=== PATIENT | male | born 1955 | race Caucasian/White ===

== ENCOUNTER 2020-03-10 13:30 | Emergency (ER) | payer OTHER ==
[~2020-03-10] VITALS: Ht 172.7 cm; Wt 113.6 kg
[2020-03-10 13:46] VITALS: TEMP 98.3
[2020-03-10] MEDS ORDERED: GLUCOPHAGE500 MG/TAB PO (14:54)
[2020-03-10] MEDS ORDERED: ZOCOR 10MG10 MG PO (14:54)
[2020-03-10] MEDS ORDERED: INDERAL LA 80MG80 MG PO (14:55)
[2020-03-10 15:09] LABS: COLLECTION METHOD CLEAN CATCH
[2020-03-10 15:16] LABS: HEMATOCRIT 39.6 % (42.0-52.0); MEAN CELL VOLUME 92 fl (80.0-100.0); MEAN CORPUSCULAR HEMOGLOBIN 30 pg (27.0-31.0); MEAN CORPUSCULAR HGB CONC 33 g/dl (33.0-37.0); MEAN PLATELET VOLUME 10.8 fl (7.4-10.4); PLATELET COUNT 97 K/mm3 (130-400); RED BLOOD COUNT 4.33 M/mm3 (4.20-5.60); REDCELL DISTRIBUTION WIDTH-CV 13.1 % (11.5-14.5)
[2020-03-10 15:17] LABS: PH 6 (5-8); SQUAMOUS EPITHELIAL None Seen /hpf; URINE APPEARANCE Clear; URINE BACTERIA None Seen /hpf; URINE BILIRUBIN Negative (NEGATIVE); URINE BLOOD Negative (NEGATIVE); URINE COLOR Straw; URINE GLUCOSE Negative (NEGATIVE); URINE KETONE Negative (NEGATIVE); URINE LEUKOCYTE ESTERASE Negative (NEGATIVE); URINE NITRATE Negative (NEGATIVE); URINE PROTEIN(semi-quant) Negative (NEGATIVE); URINE RBC 0-2 /hpf; URINE UROBILINOGEN Negative (NEGATIVE)
[2020-03-10 15:29] LABS: ALANINE AMINOTRANSFERASE 21 U/L (4-49); ALBUMIN 4.3 gm/dL (3.5-5.0); ALKALINE PHOSPHATASE 90 U/L (50-136); ANION GAP 9 mmol/L (7-16); AST,SGOT 34 U/L (15-37); BILIRUBIN,TOTAL 0.5 mg/dL (0.0-1.0); BLOOD UREA NITROGEN 13 mg/dL (9-20); C-REACTIVE PROTEIN 1.5 mg/dL (0.0-0.9); CALCIUM 8.7 mg/dL (8.4-10.2); CARBON DIOXIDE 25 mmol/L (22-30); CHLORIDE 102 mmol/L (98-107); CREATININE, serum 0.98 (0.66-1.25); GLUCOSE 103 mg/dL (74-106); LIPASE 57 U/L (23-300); POTASSIUM 4.2 mmol/L (3.4-5.0); SODIUM 136 mmol/L (137-145)
[2020-03-10 15:48] LABS: TROPONIN-I < 0.012 ng/mL (0.000-0.035)
[2020-03-10 16:39] LABS: BAND 1 % (0-10); EOSINOPHIL 1 % (0-4); HYPOCHROMIA 1+; LYMPHOCYTE 83 % (20.0-51.0); NEUTROPHILS 11 % (42.0-75.2); PLATELET ESTIMATE DECREASED (NORMAL)
[2020-03-10] MEDS ORDERED: TESSALON P100 MG/CAP PO (17:03)
[2020-03-10] MEDS ORDERED: FLEXERIL 1010 MG/TAB PO (17:03)
[2020-03-10 17:20] VITALS: BP 118/77; PULSE 65
== END 2020-03-10 17:20 | disposition home or self-care (01) ==
LOC: COL.ER 13:30
PROVIDERS: Emergency Medicine
DX: R10.11 Right upper quadrant pain (principal); Z86.19 Personal history of other infectious and parasitic diseases; Z79.84 Long term (current) use of oral hypoglycemic drugs
CPT/HCPCS: J2405; J7030; Q9967